=== PATIENT | male | born 1945 | race Two or more races ===

== ENCOUNTER 2018-01-01 05:33 | Inpatient (IN) | payer OTHER ==
[~2018-01-01] VITALS: Ht 170.2 cm; Wt 97.7 kg
[2018-01-01 05:48] VITALS: Ht 170.2 cm; Wt 97.7 kg
[2018-01-01 06:49] LABS: PLATELET COUNT 219 x10^3mcL (130-400); RED CELL DISTRIBUTION WIDTH 12.6 % (11.5-14.5)
[2018-01-01 07:14] LABS: CALCIUM 9.2 mg/dL (8.5-10.1); CARBON DIOXIDE 26.1 mmol/L (21-32); CHLORIDE SERUM 97 mmol/L (98-107); CREATININE SERUM 1.1 mg/dL (0.7-1.3); GLUCOSE SERUM 142 mg/dL (74-106); POTASSIUM SERUM 3.7 mmol/L (3.5-5.1); SODIUM SERUM 136 mmol/L (136-145)
[2018-01-01 07:27] LABS: ALKALINE PHOSPHATASE 88 U/L (46-116); ALT/SGPT 37 U/L (16-63); AMYLASE 43 U/L (25-115); AST/SGOT 94 U/L (15-37); BILIRUBIN TOTAL 1.3 mg/dL (0.20-1.00); CHOLESTEROL 190 mg/dL (<200); HDL CHOLESTEROL 46 mg/dL (40-60); LIPASE 150 IU/L (73-393); MAGNESIUM 1.8 mg/dL (1.8-2.4); T4(THYROXINE) 7.6 ug/dL (4.7-13.3); TOTAL PROTEIN, SERUM 7.8 g/dL (6.4-8.2)
[2018-01-01 07:28] LABS: ALBUMIN 3.1 g/dL (3.4-5.0)
[2018-01-01 08:03] LABS: BAND NEUTROPHIL 10 % (0-10); BASOPHIL 0 % (0-2); MONOCYTE 2 % (0-7); SEGMENTED NEUTROPHILS 78 % (37-75)
[2018-01-01 08:04] LABS: rbc morphology (normal/abnorm) ABNORMAL (NORMAL); tear drop cell (dacryocyte) 1+
[2018-01-01 08:22] LABS: microscopic required? YES; urine erythrocyte 1+ (NEGATIVE)
[2018-01-01 08:31] LABS: AMPHETAMINE QUAL UR NONE DETECTED (See below)
[2018-01-01] MEDS ORDERED: NIFEDIPINE60 MG PO (09:11)
[2018-01-01] MEDS ORDERED: KEFLEX500 M1 PO (09:12)
[2018-01-01] MEDS ORDERED: XANAX0.5 MG PO (09:12)
[2018-01-01] MEDS ORDERED: MOT800 PO (09:13)
[2018-01-01] MEDS ORDERED: TYLENOL EXTRA500 M3 PO (09:14)
[2018-01-01] MEDS ORDERED: NABUMETONE500 MG PO (09:14)
[2018-01-01] MEDS ORDERED: MELOXICAM15 M1 PO (09:14)
[2018-01-01 09:19] LABS: PHOSPHOROUS 2.5 mg/dL (2.5-4.9)
[2018-01-01 12:03] VITALS: BP 137/89
[2018-01-01 15:01] VITALS: BP 125/78
[2018-01-01 15:04] VITALS: BP 125/78
[2018-01-01] MEDS ORDERED: LIPI10 PO (15:50)
[2018-01-01] MEDS ORDERED: NIT0.4 SL (15:50)
[2018-01-01] MEDS ORDERED: HEP25PM IV (15:50)
[2018-01-01] MEDS ORDERED: METOPROLOL TART25 M1 PO (15:51)
[2018-01-01] MEDS ORDERED: HEP5I IV (15:54)
[2018-01-01] MEDS ORDERED: HEP100I IV (15:54)
[2018-01-01] MEDS ORDERED: ASPIR 8181 MG PO (15:55)
[2018-01-01 16:28] VITALS: BP 134/89
== END 2018-01-01 17:00 | disposition short-term general hospital (02) | DRG 280 ==
LOC: ED 05:33 → DU 07:52
PROVIDERS: Emergency Medicine; Internal Medicine
DX: I21.4 Non-ST elevation (NSTEMI) myocardial infarction (principal); A41.9 Sepsis, unspecified organism; J96.01 Acute respiratory failure with hypoxia; R65.20 Severe sepsis without septic shock; I50.21 Acute systolic (congestive) heart failure; N39.0 Urinary tract infection, site not specified; I11.0 Hypertensive heart disease with heart failure; E78.5 Hyperlipidemia, unspecified; M19.90 Unspecified osteoarthritis, unspecified site; F10.10 Alcohol abuse, uncomplicated; F12.10 Cannabis abuse, uncomplicated; Z68.33 Body mass index [BMI] 33.0-33.9, adult
CPT/HCPCS: 36600; 83880; 94150; G0480; J0696; J1644; J1940; J1956; J3490; J7620; Q0092